=== PATIENT | female | born 1965 | race Caucasian/White ===

== ENCOUNTER 2024-02-13 12:50 | Emergency (ER) | payer BC, SELFPAY ==
[2024-02-13] VITALS (14 sets, daily range): BP systolic 139–191; BP diastolic 78–120; PULSE 63–65; BMI 27.2
[2024-02-13 13:05] LABS: % Basophils 0.9 % (0-2); % Eosinophils 3.6 % (0-6); % Immature Granulocytes 0.3 % (0-0.5); % Lymphocytes 31.9 % (20.5-51.1); % Monocytes 7.7 % (1.7-9.3); % Neutrophils 55.6 % (42.2-75.2); Absolute Basophils 0.1 10^3/uL (0-0.2); Absolute Eosinophils 0.3 10^3/uL (0-0.7); Absolute Lymphocytes 2.5 10^3/uL (1.2-3.4); Absolute Monocytes 0.6 10^3/uL (0.1-0.6); Absolute Neutrophils 4.3 10^3/uL (1.4-6.5); Hematocrit 38.7 % (37.0-47.0); Hemoglobin 13.2 g/dL (12.0-16.0); Mean Corp Hgb Conc. 34.1 g/dL (33.0-37.0); Mean Corpuscular Hgb 32.1 pg (27.0-31.0); Mean Corpuscular Volume 94.2 fL (81.0-99.0); Mean Platelet Volume 9.6 fL (7.4-10.4); Nucleated Red Blood Cells % 0 %; Platelet Count 264 10^3/uL (130-400); Red Blood Cell Count 4.11 10^6/uL (4.20-5.40); Red Cell Dist. Width 12.6 % (11.5-14.5); White Blood Cell Count 7.8 10^3/uL (4.8-10.8)
[2024-02-13 13:18] LABS: ALT (SGPT) 31 U/L (0-35); AST (SGOT) 34 U/L (14-36); Albumin 4.5 g/dl (3.5-5.0); Alkaline Phosphatase 70 U/L (38-126); Blood Urea Nitrogen 17 mg/dl (7-17); Calcium 9.8 mg/dl (8.4-10.2); Carbon Dioxide 25 mmol/L (22-30); Chloride 104 mmol/L (98-107); Glucose 123 mg/dl (70-99); Potassium 4.5 mmol/L (3.5-5.1); Sodium 134 mmol/L (135-145); Total Bilirubin 0.6 mg/dl (0.2-1.3); Total Protein 7.1 g/dl (6.3-8.2); eGFR > 60.00
--- NOTE | 2024-02-13 14:24 | ED.GENMED ---
History of Present Illness
General
Chief Complaint: Dizziness
Source: patient and family (son)
Exam Limitations: none
Time Seen by Provider: 02/13/24 12:52
Nursing documentation reviewed up to this point in time: agreed with
Travel History
Have you had any contact with someone who has COVID-19?: No
Do you have any symptoms of coronavirus? Fever > 100 degrees, chills, cough, shortness of breath, sore throat, loss of taste or smell, muscle aches, or headache?: No
History of Present Illness
History of Present Illness:
The patient is a 58-year-old female with a past medical history of elevated cholesterol who reports that she swung her granddaughter up and down 3 times and shortly afterwards, developed dizziness. Patient reports that she felt as though her head
was spinning. Patient reports the symptoms continued to worsen, leading to her feeling very nauseous and unsteady on her feet. Patient denies chest pain or shortness of breath. Patient was given Zofran en route by paramedics and reports she now
feels better, but when she sits up or moves her head, the dizziness reoccurs. Patient denies vision changes, weakness and numbness.
Past History
Past History
ED Past Medical History: Hypercholesterolemia
ED Past Surgical History: Other
Social History
Tobacco: Non-smoker
Alcohol: Other
Drug: None
Personal:
Living: with family
Employment: Other
Family History
Family History: Other
Review of Systems
Review of Systems
Allergies reviewed?: Yes
All Other Systems: ROS reviewed and negative except as documented in HPI and ROS
Constitutional: Reports no symptoms
EENT: Reports no symptoms
Respiratory: Reports no symptoms
Cardiac: Reports no symptoms
ABD/GI: Reports nausea
: Reports no symptoms
Musculoskeletal: Reports no symptoms
Skin: Reports no symptoms
Neurological: Reports dizzy
Endocrine: Reports no symptoms
Hematologic/Lymphatic: Reports no symptoms
Psychiatric: Reports no symptoms
Phy Exam
Physical Exam
Physical Exam:
Physical Exam
General: no apparent distress, not acutely ill. When patient sits up or moves her head, it reproduces symptoms and patiently lays back and shuts her eyes
Neck: supple. no meningeal signs. normal psoterior pharynx
Heart: s1/s2 regular rate and rhythm, no murmur. equal radial pulses.
Lungs: no acute respiratory distress. clear bilaterally
Abdomen: normal bowel sounds. not tender. no CVAT
Neuro: alert and orientedx3. no focal neurological deficits. Extraocular muscles intact. 5 out of 5 strength in all extremities without drift. Normal [id number] and [id number].
Skin: no rash
Psychiatric: well kept. interactive and cooperative
Extremities: no edema. no calf tenderness. negative homans. good distal pulses
Course
Orders/Labs/Results
Orders:
Orders
02/13/24 12:52
Electrocardiogram (*1) Urgent
Reason for Study: Vertigo / Dizzy
02/13/24 12:53
EKG- Treatment ONCE
CMP [Comprehensive Metabolic Panel] Urgent
02/13/24 12:54
Complete Blood Count/With Diff Urgent
02/13/24 13:53
Meclizine [Antivert] 50 mg PO NOW STA
02/13/24 15:04
Meclizine [Antivert] 25 mg .ROUTE .STK-MED ONE
02/13/24 15:06
Meclizine [Antivert] 25 mg .ROUTE .STK-MED ONE
02/13/24 16:19
Ondansetron Injectable [Zofran] 4 mg IV NOW STA
Abnormal Lab Results
02/13/24 02/13/24
12:53 12:54
RBC 4.11 L 10^6/uL
(4.20-5.40)
MCH 32.1 H pg
(27.0-31.0)
Sodium 134 L mmol/L
(135-145)
Glucose 123 H mg/dl
(70-99)
02/13/24 12:54
02/13/24 12:53
Vital Signs
Initial and Last Documented VS:
Initial Vital Signs
Temp Pulse Resp BP Pulse Ox
98.2 F 64 17 191/102 100
02/13/24 12:51 02/13/24 12:51 02/13/24 12:51 02/13/24 12:51 02/13/24 12:51
Last Documented Vital Signs
Temp Pulse Resp BP Pulse Ox
98.1 F 64 17 154/85 99
02/13/24 15:02 02/13/24 15:45 02/13/24 15:45 02/13/24 17:00 02/13/24 17:00
MDM/Problems Addressed
Differential Diagnosis Includes:
Benign positional vertigo, acute CVA, dehydration
MDM/Problems Addressed:
Patient presents with acute dizziness and nausea
Acute Exacerbation and/or Progression of Chronic Illness:
Patient is acutely hypertensive but she appears uncomfortable and anxious
*Pulse Oximetry
Patient hypoxic: no
*EKG
Interpreted by ED Provider?: Yes
Interpretation: abnormal
Comparison EKG: no comparison EKG present
Rate: normal
Rhythm: sinus
Decorah: left axis deviation
Interval: normal interval
QRS Pattern: normal QRS
Ischemia: non-specific ST changes
*Solder Sprayer Interpretation
Rate: normal
Interpretation: normal
Rhythm: sinus
*Critical Care Note
Total Time (30-74mins, 75-104mins- exclusive of procedures): Not Applicable
Update Note
Update Note:
Patient has been resting comfortably for hours. She is normal neurological exam and is very low risk for stroke. Her symptoms are very consistent with benign positional vertigo. Patient will be given meclizine, if feeling better, I feel she can
safely go home and follow-up with her doctor. Blood pressure greatly improved as patient feels better here.
ED Attending Note
-
Portions of this chart may have been created with voice recognition software.� Occasional wrong word or��sound alike� substitutions may have occurred due to the inherent limitations of voice recognition software.
Discharge Plan
Departure
Patient Disposition: Home (Routine Discharge)
Patient with high blood pressure during this ER visit?: Yes
Condition: Good
Covid-19: Not Applicable
Discharge Problem:
Vertigo
Instructions: Vertigo (a type of dizziness), BLOOD PRESSURE
Prescriptions:
New
meclizine 25 mg tablet
25 mg PO BID PRN (Reason: dizziness) Qty: 7 0RF
Referrals:
NONE,* [Family Provider] -
Interventions
Interventions:
*Risk Screen - Suicide Last Done: 02/13/24 12:51
*General Assessment Last Done: 02/13/24 12:51
*Neglect/Abuse Screening Last Done: 02/13/24 12:51
ED- Fall Risk Assessment Last Done: 02/13/24 12:51
*ED COVID-19 Vaccine History Last Done: 02/13/24 12:51
*Nursing Disposition Last Done: 02/13/24 17:12
ED- Neurological Assessment Last Done: 02/13/24 12:51
ED- Cardiac Assessment Last Done: 02/13/24 12:51
ED Swallowing Screen Last Done: 02/13/24 12:51
Discharge Date and Time
Discharge Date/Time: 02/13/24 17:13
Print Language: KOREAN
[2024-02-13] MEDS: ANTIVERT 50 MG PO (15:05)
--- NOTE | 2024-02-13 16:18 | EDRN ---
orthostatic vital signs obtained, the pt stood up to walk to the bathroom and started to throw up, no c/o dizziness, no c/o light headedness, the pt was able to ambulate back to the stretcher independently, provider notified, will continue to
monitor the pt closely
[2024-02-13] MEDS: ZOFRAN 4 MG IV (16:25)
--- NOTE | 2024-02-13 16:32 | EDRN ---
Zofran 4mg IV administered per providers orders, the pt states that she feels better and is ready to go home, the pts blood pressure is currently 139/81 (98), the pt states that her blood pressure is usually in the 130's, will continue to monitor
the pt closely
== END 2024-02-13 17:13 | disposition home or self-care (01) ==
LOC: EMR 12:50
PROVIDERS: EMERGENCY PHYSICIAN Emergency Medicine
DX: R42 Dizziness and giddiness (principal); R03.0 Elevated blood-pressure reading, without diagnosis of hypertension
CPT/HCPCS: 99284; 96374; 80053; 85025; 93005